=== PATIENT | male | born 1955 | race Caucasian/White ===

== ENCOUNTER 2019-01-14 09:12 | Observation (INO) ==
[2019-01-14] MEDS ORDERED: ASPIRIN PO ONE (09:23)
[2019-01-14] MEDS ORDERED: NITROGLYCERIN TOP ONE (10:01)
--- NOTE | 2019-01-14 10:02 | Diag Imaging Result Doc PS360 ---
EXAM: CHEST-2 VIEWS HISTORY: CP TECHNIQUE: Two views COMPARISON: 09/04/2014 FINDINGS: The lungs are hyperexpanded. The heart is not enlarged. There are sternal wires. The vessels are not distended. There are no infiltrates. No pleural effusions. Multiple old left rib fractures. IMPRESSION: Likely emphysema Electronically signed by Jose Bernardo 01/14/2019 10:00 AM
[2019-01-14 10:06] LABS: BASO# 0.06 X1000 (0.0-0.2); BASO% 0.6 % (0.0-0.8); EOS% 4.1 % (0.0-10.0); HEMATOCRIT 43.6 % (42.0-52.0); HEMOGLOBIN 14.6 g/dL (14.0-18.0); IMM GRAN# 0.03 X1000 (0.0-0.04); IMM GRAN% 0.3 % (0.0-0.5); LYMPH% 18.6 % (20.5-51.1); MCH 32.9 PG (27-31); MCHC 33.5 g/dL (33-37); MCV 98.2 FL (81-99); MONO# 0.66 X1000 (0.11-0.59); MONO% 6.8 % (1.7-9.3); MPV 13.1 FL (7.4-10.4); NEUT# 6.74 X1000 (1.4-6.5); NEUT% 69.6 % (42.2-75.2); PLT 106 X1000 (130-400); RBC 4.44 XMIL (4.7-6.1); RDW 14.7 % (11.5-14.5); WBC 9.69 X1000 (4.8-10.8)
[2019-01-14 10:10] LABS: AGAP 12; ALB/GLOB RATIO 1.4; ALBUMIN 4.5 g/dL (3.5-5.0); ALKALINE PHOSPHATASE 72 U/L (32-122); BUN 15 mg/dL (8-22); CALCIUM 9.4 mg/dL (8.8-10.2); CHLORIDE 101 mmol/L (98-107); CK PROFILE 62 U/L (24-204); COSMO 280; CREATININE 1.1 mg/dL (0.7-1.2); ESTIMATED GFR > 60; GLUCOSE 134 mg/dL (70-104); GOT 20 U/L (10-34); GPT 16 U/L (10-44); INR 2.22; POTASSIUM 4.1 mmol/L (3.5-5.1); PROTIME 25.2 Seconds (11.0-16.0); SODIUM 139 mmol/L (136-145); TCO2 26 mmol/L (25-35); TOTAL BILIRUBIN 0.52 mg/dL (0.20-1.00); TOTAL PROTEIN 7.7 g/dL (6.3-8.3)
--- NOTE | 2019-01-14 10:15 | EKG Report ---
Test Performed on : 01/14/2019 09:18:41 AM Test Reason : CP Blood Pressure : / mmHG Vent. Rate : 077 BPM Atrial Rate : 077 BPM P-R Int : 188 ms QRS Dur : 124 ms QT Int : 416 ms P-R-T Axes : 078 056 077 degrees QTc Int : 470 ms Normal sinus rhythm. Nonspecific intraventricular conduction delay Borderline ECG When compared with ECG of 25-APR-2007 14:44, No significant change was found Unconfirmed Result
--- NOTE | 2019-01-14 10:20 | PROVIDER DOCUMENTATION ---
HPI-Chest Pain - General Chief Complaint: Chest Pain Stated Complaint: CP Time Seen by Provider: 01/14/19 09:24 Source: patient Allergies/Adverse Reactions: Patient Allergies Allergy/AdvReac Type Severity Reaction Status Date / Time No Known Allergies Allergy Verified 01/14/19 09:35 Home Medications: Home Medication List Medication Instructions Recorded Confirmed Last Taken Type Oxycodone HCl [Roxicodone] 30 mg PO Q4HR 02/02/12 01/14/19 09/04/14 06:00 Hi story ATORVAstatin [Lipitor] 20 mg PO QPM 09/04/14 01/14/19 09/03/14 17:00 History Amiodarone HCl 200 mg PO QHS 09/04/14 01/14/19 09/03/14 21:00 History Warfarin [Coumadin] 3 mg PO EVERY OTHER DAY 09/04/14 01/14/19 09/03/14 21:00 History Warfarin [Coumadin] 6 mg PO EVERY OTHER DAY 09/04/14 01/14/19 09/02/14 21:00 History Carvedilol [Coreg] 6.25 mg PO BID 01/14/19 01/14/19 Unknown History Spironolactone 25 mg PO DAILY 01/14/19 01/14/19 Unknown History - History of Present Illness-CP Nature of Presenting Problem: Patient is a 63 yowm who complains of mid sternal chest "pressure and heaviness" and SOB x 1 week. States the s/s are exacerbated by exertion. States, "I can't even walk to the mailbox without getting short of breath." Denies any other complaints. He is non-toxic in appearance. Context/Activities at Onset: reports: light activity Modifying Factors: improves with: rest (improves s/s) Review of Systems - Adult - REVIEW OF SYSTEMS - ADULT Constitutional: reports: no symptoms reported Eyes: reports: no symptoms reported Ears, Nose, Mouth & Throat: reports: no symptoms reported Cardiovascular: reports: see HPI, chest pain. denies: edema, syncope Respiratory: reports: see HPI, dyspnea on exertion, shortness of breath. denies: cough, hemoptysis, wheezing Gastrointestinal: reports: no symptoms reported Genitourinary: reports: no symptoms reported Musculoskeletal: reports: no symptoms reported Integumentary: reports: no symptoms reported Neurological: reports: no symptoms reported Psychiatric: reports: no symptoms reported Endocrine: reports: no symptoms reported Hematologic/Lymphatic: reports: no symptoms reported Allergic/Immunologic: reports: no symptoms reported All Other Systems: Reviewed and Negative Past History - Adult - PAST MEDICAL HISTORY-ADULT Review of Records: reports: Old Records Reviewed, Nursing Assessment Review, Medications Reviewed, Social history reviewed & non-contributory. Major Childhood Illnesses: reports: denies history Cardiovascular: reports: aortic disease (thoracic aneurysm), CAD, HTN, heart valve problem (had metallic heart valve placed when aneursym was repaired) Gastrointestinal: reports: pancreatitis Genitourinary: reports: kidney stones Musculoskeletal: reports: arthritis, chronic pain (back) Psychiatric: reports: denies history Endocrine/Immune: reports: denies history Other Conditions: reports: denies history - PRIOR SURGERIES/PROCEDURES Surgical/Procedure History: reports: orthopedic (extremity) (right knee ), joint replacement (right knee), other (lithotripsy; thoracic aortic aneursym repair with valve placement) - IMMUNIZATION STATUS Childhood Immunizations: See Nurse Assessment Flu Vaccine: See Nurse Assessment - FAMILY HISTORY Family History: reviewed, not pertinent, other (neg for CAD) - SOCIAL HISTORY Smoking: cigarettes, greater than 1 pack/day Physical Exam-General - PHYSICAL EXAM-ADULT Initial Vital Signs Reviewed: Yes - CONSTITUTIONAL General Appearance: alert, no apparent distress. negative: lethargic, slow to respond - EYES Eyes: PERRL/EOMI, pink conjunctivae - HEAD, EARS, NOSE, MOUTH & THROAT HENMT: normocephalic/atraumatic, moist mucous membranes - NECK Neck: full range of motion, supple, normal inspection - RESPIRATORY Respiratory: chest non-tender, lungs clear, no respiratory distress, no acces dwight muscle use - CARDIOVASCULAR Cardiovascular: normal peripheral pulses, no edema, no gallop, no JVD, no murmur , other (systolic click) - GASTROINTESTINAL (ABDOMEN) Abdominal Exam: normal bowel sounds, non tender, soft - MUSCULOSKELETAL Back Exam: normal inspection Extremity: normal range of motion, non-tender, normal gait, normal inspection - SKIN Integumentary: normal color, warm/dry. negative: cyanosis, diaphoresis, jaundice, mottled, pallor - NEUROLOGIC Neurologic: grossly normal, no motor/sensory deficits - PSYCHIATRIC Psych/Mental Status: normal mood/affect, normal thought content, normal thought process, oriented x 3 - HEART Score HEART Score: History: Highly Suspicious HEART Score: ECG: Normal HEART Score: Age: 45-65 Years HEART Score: Risk Factors for Atherosclerotic Disease: > or = 3 Risk Factors or History of Atherosclerotic Disease HEART Score: Troponin: < or = Normal Limit Total HEART Score:: 5 Progress - PLAN OF CARE/RESULTS Progress/Plan/Lab Results: Vital Signs - 8 hr 01/14/19 09:15 01/14/19 09:24 01/14/19 09:25 Temperature 98.0 F Pulse Rate 77 76 Respiratory Rate 20 10 L Blood Pressure 133/85 144/92 O2 Sat by Pulse Oximetry 98 98 97 01/14/19 09:30 01/14/19 09:31 01/14/19 09:52 Temperature Pulse Rate 73 71 86 Respiratory Rate 15 12 8 L Blood Pressure 137/92 O2 Sat by Pulse Oximetry 98 99 97 01/14/19 09:53 01/14/19 10:00 01/14/19 10:01 Temperature Pulse Rate 73 70 72 Respiratory Rate 16 15 20 Blood Pressure 120/88 134/86 O2 Sat by Pulse Oximetry 97 97 95 01/14/19 10:15 01/14/19 10:30 01/14/19 10:31 Temperature Pulse Rate 72 69 68 Respiratory Rate 14 21 15 Blood Pressure 132/84 O2 Sat by Pulse Oximetry 95 94 L 95 01/14/19 10:45 01/14/19 11:00 01/14/19 11:01 Temperature Pulse Rate 67 66 65 Respiratory Rate 21 17 17 Blood Pressure 117/74 O2 Sat by Pulse Oximetry 94 L 95 95 01/14/19 11:15 01/14/19 11:30 01/14/19 11:31 Temperature Pulse Rate 65 66 63 Respiratory Rate 15 22 16 Blood Pressure 112/81 O2 Sat by Pulse Oximetry 96 97 97 01/14/19 11:48 01/14/19 12:00 Temperature Pulse Rate 66 60 Respiratory Rate 18 12 Blood Pressure 110/69 O2 Sat by Pulse Oximetry 94 L 97 Laboratory Results - last 24 hr 01/14/19 01/14/19 01/14/19 09:30 09:30 09:30 WBC 9.69 RBC 4.44 L Hgb 14.6 Hct 43.6 MCV 98.2 MCH 32.9 H MCHC 33.5 RDW Std Deviation 14.7 H Plt Count 106 L MPV 13.1 H Immature Gran % (Auto) 0.3 Neut % (Auto) 69.6 Lymph % (Auto) 18.6 L Kershaw % (Auto) 6.8 Eos % (Auto) 4.1 Baso % (Auto) 0.6 Immature Gran # (Auto) 0.03 Neut # (Auto) 6.74 H Lymph # (Auto) 1.80 Kershaw # (Auto) 0.66 H Eos # (Auto) 0.40 Baso # (Auto) 0.06 PT INR PTT (Actin FS) D-Dimer, Quantitative Sodium 139 Potassium 4.1 Chloride 101 Carbon Dioxide 26 Anion Gap 12 BUN 15 Creatinine 1.1 Estimated GFR/1.73 m2 > 60 BUN/Creatinine Ratio 14 Glucose 134 H Calculated Osmolality 280 Calcium 9.4 Total Bilirubin 0.52 AST 20 ALT 16 Alkaline Phosphatase 72 Creatine Kinase 62 Troponin T Jee-U-Kbugpxxakof Pept 376 H Total Protein 7.7 Albumin 4.5 Globulin 3.2 Albumin/Globulin Ratio 1.4 01/14/19 01/14/19 01/14/19 09:30 09:30 09:30 WBC RBC Hgb Hct MCV MCH MCHC RDW Std Deviation Plt Count MPV Immature Gran % (Auto) Neut % (Auto) Lymph % (Auto) Kershaw % (Auto) Eos % (Auto) Baso % (Auto) Immature Gran # (Auto) Neut # (Auto) Lymph # (Auto) Kershaw # (Auto) Eos # (Auto) Baso # (Auto) PT 25.2 H INR 2.22 PTT (Actin FS) 37.0 D-Dimer, Quantitative 0.55 H Sodium Potassium Chloride Carbon Dioxide Anion Gap BUN Creatinine Estimated GFR/1.73 m2 BUN/Creatinine Ratio Glucose Calculated Osmolality Calcium Total Bilirubin AST ALT Alkaline Phosphatase Creatine Kinase Troponin T < 0.010 [id number]-Oribbtfcccv Pept Total Protein Albumin Globulin Albumin/Globulin Ratio Orders Category Date Time Status Cardiac Monitoring DIRECTED Care 01/14/19 09:24 Active Oxygen Therapy- ED Nursing DIRECTED Care 01/14/19 09:24 Active Saline Loc NOW Care 01/14/19 09:24 Active CHEST-2 VIEWS [RAD] Stat Exams 01/14/19 09:24 Completed CTA [CT ANGIOGRM PULMONARY ARTERIES] [CT] Stat Exams 01/14/19 10:59 Completed CBC WITH ELECTRONIC DIFF [HEME] Stat Lab 01/14/19 09:30 Completed CK PROFILE [SP CHEM] Stat Lab 01/14/19 09:30 Completed COMPREHENSIVE METABOLIC PANEL [CHEM] Stat Lab 01/14/19 09:30 Completed D-DIMER [COAG] Stat Lab 01/14/19 09:30 Completed PRO B-NATRIURETIC PEPTIDE Stat Lab 01/14/19 09:30 Completed PROTIME WITH INR [COAG] Stat Lab 01/14/19 09:30 Completed PTT [COAG] Stat Lab 01/14/19 09:30 Completed TROPONIN T Stat Lab 01/14/19 09:30 Completed 0.9% Sodium Chloride Inj [Ns] 250 ml Med 01/14/19 11:14 Discontinued IV 500 mls/hr Aspirin Med 01/14/19 09:23 Discontinued 325 mg PO NOW ONE Nitroglycerin Med 01/14/19 10:01 Discontinued 0.5 inch TOP NOW ONE CP/SOB/Palp >45 yrs of Age Stat Oth 01/14/19 09:23 Ordered EKG [EKG] Stat Ther 01/14/19 09:24 Draft Result Diagrams: 01/14/19 09:30 01/14/19 09:30 - REASSESSMENT Reassessment #1 Time Reassessed: 11:18 Status: improving (Chest pain resolved with nitro. Pt in agreement with admission plan. Will admit after CTA.) Reassessment #2 Time Reassessed: 11:33 Status: other (Admitting HPS paged.) Reassessment #3 Time Reassessed: 12:46 Status: other (Pt in agreement with admission plan.) - EKG 1 Time of EKG reading by physician:: 09:20 EKG Read and Signed by:: Santosh Couch EKG Interpretation (*Must complete 3 of following elements*): Abnormal Rate: 77 Rhythm: SR-nonspecific intraventricular condution delay QRS: normal ST Wave: normal - XRAY 1 XRAY Study: Chest ([facility] - [address], [address], [place] [address] [facility] - [address] [place] [address] Department of Imaging Patient: GE BURROUGHS Date: 01/14/19MR#: [id number] : 1955DM Status: PRE ERAcct#: [id number] Age/Sex: 63/MRoom/Bed: Loc: ED Ordering Physician: Santosh Couch MD Physician: Eliu Sutton DO Reason for Procedure: CP Signed EXAM: CHEST-2 VIEWS HISTORY: CP TECHNIQUE: Two views COMPARISON: 09/04/2014 FINDINGS: The lungs are hyperexpanded. The heart is not enlarged. There are sternal wires. The vessels are not distended. There are no infiltrates. No pleural effusions. Multiple old left rib fractures. IMPRESSION: Likely emphysema Electronically signed by Jose Bernardo 01/14/2019 10:00 AM 01/14/19 1000 Interpreting Physician: Jose Bernardo MD Dictated Date/Time: 01/14/19 0959 cc: Santosh Couch MD; Eliu Sutton DO) - CT/MRI 1 CT Study: Thorax ([facility] - [address] [place] [address] [address] [address] [facility] - [address] [place] [address] Department of Imaging Patient: GE BURROUGHS Date: #: [id number] : 1955DM Status: REG [facility]#: [id number] Age/Sex: 63/MRoom/Bed: Loc: ED Ordering Physician: Nakul Young Family Physician: Eliu Sutton DO Reason for Procedure: cp, SOB, elevated d-dimer Signed EXAM: CT ANGIOGRM PULMONARY ARTERIES INDICATION: cp, SOB, elevated d-dimer TECHNIQUE: This exam was performed using automated exposure control, adjustment of mA or kV according to patient size, and/or use of iterative reconstruction technique. Thin section axial images and 3-D MIPS were obtained. COMPARISON: None. FINDINGS: There is no evidence of pulmonary embolism. There is mild thoracic aortic atherosclerotic calcification. There is no evidence of thoracic aortic aneurysm. There is no cardiomegaly. There is a prosthetic aortic valve. There are calcified mediastinal and hilar lymph nodes indicating prior granulomatous disease. There is advanced pulmonary emphysema. There is patchy fibrotic change at the peripheries of both lungs, mainly at the apices. There is bronchial mucous plugging at the right lower lobe. There is no pleural fluid collection and no pneumothorax. Limited views of the upper abdomen are essentially unremarkable. IMPRESSION: 1.Advanced pulmonary emphysema. 2.Bronchial mucous plugging in the right lower lobe. Consider bronchitis. 3.No evidence of pulmonary embolism. 4.Other incidental/nonacute findings detailed above. Electronically signed by Rubens Sloan 01/14/2019 12:23 PM 01/14/19 1223 Interpreting Physician: Rubens Sloan MD Dictated Date/Time: 01/14/19 1204 cc: Nakul Young; Eliu Timmons DO) - CONSULTS/PCP/HOSPITALIST Notification #1 *Consult/PCP/Hospitalist*: GHADA Dejesus LITIGATION [place] Time Discussed: 12:46 Reason/Comments: admit- cp, SOB Consult Disposition: Admit (to Dr. Cope) Departure - Departure Date of Disposition Decision: 01/14/19 Time of Disposition Decision: 12:46 DIAGNOSIS: SOB (shortness of breath) Chest pain Qualifiers: Chest pain type: unspecified Qualified Code(s): R07.9 - Chest pain, unspecified Disposition: ADMITTED INPATIENT 09 Certified Medical Emergency: Emergent Condition: Stable Referrals and Follow-Ups: Eliu Sutton DO [Primary Care Provider] - - Critical Care Note This patient required my direct & personal management of CC.: No Attestation - Physician/ DAVIS Attestation Patient care was provided by Advanced Practice Provider:: Yes Advanced Practice Provider:: Nakul Young Advanced Practice Provider documentation review:: The Mid-level provider hal edmondson, treatment plan and medical decision making was reviewed by the physician who agrees with all treatment and medical decision making by the MLP. The physician spent face to face time with patient:: No Advanced Practice Provider documentation review:: Supervising physician onsite and consulted in the evaluation and care of this patient. The physician did not have a face to face encounter with the patient.
[2019-01-14] MEDS ORDERED: NS 250 ML IV ONE (11:14)
--- NOTE | 2019-01-14 12:25 | Diag Imaging Result Doc PS360 ---
EXAM: CT ANGIOGRM PULMONARY ARTERIES INDICATION: cp, SOB, elevated d-dimer TECHNIQUE: This exam was performed using automated exposure control, adjustment of mA or kV according to patient size, and/or use of iterative reconstruction technique. Thin section axial images and 3-D MIPS were obtained. COMPARISON: None. FINDINGS: There is no evidence of pulmonary embolism. There is mild thoracic aortic atherosclerotic calcification. There is no evidence of thoracic aortic aneurysm. There is no cardiomegaly. There is a prosthetic aortic valve. There are calcified mediastinal and hilar lymph nodes indicating prior granulomatous disease. There is advanced pulmonary emphysema. There is patchy fibrotic change at the peripheries of both lungs, mainly at the apices. There is bronchial mucous plugging at the right lower lobe. There is no pleural fluid collection and no pneumothorax. Limited views of the upper abdomen are essentially unremarkable. IMPRESSION: 1.Advanced pulmonary emphysema. 2.Bronchial mucous plugging in the right lower lobe. Consider bronchitis. 3.No evidence of pulmonary embolism. 4.Other incidental/nonacute findings detailed above. Electronically signed by Rubens Sloan 01/14/2019 12:23 PM
[2019-01-14] MEDS ORDERED: TYLENOL PO PRN (13:38)
[2019-01-14] MEDS ORDERED: ZOFRAN IV PRN (13:38)
--- NOTE | 2019-01-14 14:06 | HISTORY AND PHYSICAL ---
HISTORY OF PRESENT ILLNESS: Mr. Gomez is a 63-year-old who presented to the emergency room. He said for the last week he has had this pressure sensation over anterior sternum and it waxes and wanes through the day, but the last 24 hours seemed to be more constant. It did not radiate into his jaw or to his arm. No diaphoresis appreciated. Did feel short of breath. It did seem to come on with exertion and seemed to be relieved with some rest. He did get some relief he felt like when he got a nitroglycerin and he came to the emergency room. Denies fever or chills, pleuritic pain, productive cough, sputum production. No recent trauma to his chest. PAST MEDICAL HISTORY: 1. History of pancreatitis in the past. 2. Thoracic aneurysm and repair. 3. He has a mechanical aortic valve. 4. History of coronary artery disease. 5. Hypertension. 6. Nephrolithiasis, 7. Chronic back pain. 8. Osteoarthritis. PAST SURGICAL HISTORY: 1. Right knee surgery. 2. Thoracic aortic aneurysm repair. 3. Aortic valve replacement. ALLERGIES: No known drug allergies. FAMILY HISTORY: Apparently his mother had abdominal aneurysm. Otherwise, no significant heart issues. SOCIAL HISTORY: Denies alcohol but he has smoked since he was a child, 12 years old. He is . No illicit drugs. REVIEW OF SYSTEMS: General: No weight gain or loss reported. HEENT: No change in visual or hearing acuity reported. No neck pain or adenopathy. Respiratory: No increased work of breathing except associated with this chest pain. Cardiovascular: As above. Pressure type chest pain which has waxed and waned over the last week, seems to be related to exertion and relieved with rest. GI: No gross hematochezia. No abdominal pain. Does have a history of pancreatitis in the past. Genitourinary: No gross hematuria or dysuria reported. Musculoskeletal/Neurologic: No significant complaints. Endocrinologic/Hematologic: No significant history. PHYSICAL EXAMINATION: VITAL SIGNS: In the emergency room, well-developed, well-nourished white male with no acute distress. HEENT: Pupils are equal and round. LUNGS: Clear in all lung guy. CARDIOVASCULAR: Regular rhythm and rate without murmur or S3. ABDOMEN: Soft, nondistended. No organomegaly appreciated. No pedal edema. No sign of rash. NECK: Supple. No thyromegaly. VITAL SIGNS: Temperature is 98 degrees, pulse 60, respirations 12, blood pressure 110/69. Height 6 feet 5 inches. He has a midline sternal scar. LABORATORY DATA: White blood cell count 9690, hematocrit 43, platelet count 106,000. Sodium 139, potassium 4.1, chloride 101, BUN 15, creatinine 1.1 blood sugars 134, calcium 9.4, AST 20, ALT 16, alkaline phosphatase 72. ProBNP is 376. Albumin is 4.5. ProTime is 25 with an INR 2.2, PTT is 37. D-dimer is 0.55. IMAGING: Chest x-ray: Likely emphysema, expanded lung volumes. Lungs are hyperexpanded. Heart is not enlarged. I could appreciate the sternal wires. No sign of vessels being distended. No infiltrate or pleural effusion. CT angiogram: Advanced pulmonary emphysema, bronchial mucous plugging in the right lower lobe, consider bronchitis. No evidence of pulmonary embolism. ASSESSMENT AND PLAN: 1. Chest pain, which would be hard to rule out angina. He does have risk factors. I believe he has hypercholesterolemia and history of smoking and he has had abdominal aneurysm repair. So we are going to check serial cardiac enzymes, troponin and CK. We will check his thyroid function, T4, and TSH. We will ask Cardiology to help and decide whether we should pursue a nuclear GXT or may need to be more aggressive, to be based on his clinical course. 2. Apparently, he is on amiodarone. I am assuming this is for ventricular arrhythmias, but I am not sure about that, but he is on amiodarone. We will continue that. Another reason to check his thyroid. Will make sure to follow his electrolytes including magnesium. 3. He has had a mechanical aortic valve replacement. He is on Coumadin. His pro-time is pretty close to being in range. We will continue his present Coumadin. 4. It appears that he has significant chronic obstructive pulmonary disease based on radiographically and long history of smoking. We will children's counselor him on the importance of stopping smoking. 5. History of hypertension. 6. History of nephrolithiasis. 7. Osteoarthritis. Reviewing his home medication, he is on Lipitor 20 mg a day, amiodarone 200 mg at bedtime, Coreg 6.25 mg b.i.d., oxycodone 30 mg p.o. q.4 hours, and spironolactone 25 mg a day. He takes Coumadin 3 alternating with 6 mg every other day. cc: Dash Cope MD
[2019-01-14 14:18] LABS: AGAP 12; BUN 14 mg/dL (8-22); CALCIUM 8.5 mg/dL (8.8-10.2); CHLORIDE 101 mmol/L (98-107); COSMO 275; ESTIMATED GFR > 60; GLUCOSE 82 mg/dL (70-104); POTASSIUM 4.2 mmol/L (3.5-5.1); SODIUM 138 mmol/L (136-145); TCO2 25 mmol/L (25-35)
[2019-01-14 14:38] LABS: FREE T4 1.66 ng/dL (0.93-1.70); TSH 1.85 uIUmL (0.27-4.20)
--- NOTE | 2019-01-14 15:30 | EKG Report ---
Test Performed on : 01/14/2019 1:28:42 PM Test Reason : ED. No order in MT Blood Pressure : / mmHG Vent. Rate : 062 BPM Atrial Rate : 062 BPM P-R Int : 200 ms QRS Dur : 128 ms QT Int : 464 ms P-R-T Axes : 066 027 060 degrees QTc Int : 470 ms Normal sinus rhythm. Nonspecific intraventricular block Nonspecific T wave abnormality Abnormal ECG When compared with ECG of 14-JAN-2019 09:18, (Unconfirmed) No significant change was found Unconfirmed Result
[2019-01-14] MEDS: OXY IR PO SCH ×2 (16:50→21:54)
[2019-01-14] MEDS: COREG PO SCH (20:52)
[2019-01-14] MEDS ORDERED: CORDARONE PO SCH (21:00)
[2019-01-14] MEDS ORDERED: COUMADIN PO SCH (21:00)
[2019-01-14] MEDS ORDERED: LIPITOR PO SCH (21:00)
[2019-01-15] MEDS: OXY IR PO SCH ×2 (03:55→09:23)
[2019-01-15 06:03] LABS: INR 3.19; PROTIME 33.7 Seconds (11.0-16.0)
[2019-01-15] MEDS ORDERED: PRILOSEC PO SCH (07:00)
[2019-01-15] MEDS ORDERED: ASPIRIN PO SCH (09:00)
[2019-01-15] MEDS ORDERED: NICODERM PATCH TD SCH (09:00)
[2019-01-15] MEDS ORDERED: ALDACTONE PO SCH (09:00)
[2019-01-15] MEDS: COREG PO SCH (09:24)
[2019-01-15 11:33] VITALS: BP 98/68
--- NOTE | 2019-01-15 12:47 | DISCHARGE SUMMARY ---
ADMISSION DATE: 01/14/2019 DISCHARGE DATE: Mr. Gomez is a 63-year-old who presented to the emergency room 01/14/2019. He said that he was having a pressure sensation into sternum and waxes and wanes for the last 24 hours and it did not radiate into his arm or neck. He felt a little short of breath and it seemed to be worse with exertion. He got some relief when he got some nitroglycerin, so admitted him to the hospital. Cardiac enzymes, EKG was not did not show any active ischemia. PAST MEDICAL HISTORY: 1. History of pancreatitis in the past. 2. Thoracic aneurysm repair. 3. Mechanical aortic valve. 4. History of coronary artery disease. 5. Hypertension. 6. Nephrolithiasis, 7. Chronic back pain. 8. Osteoarthritis. PAST SURGICAL HISTORY: 1. Right knee surgery. 2. Thoracic aortic aneurysm pair. 3. Aortic valve replacement. ADMISSION DIAGNOSIS: 1. Chest pain was atypical and did not appear to be typical angina. He was given nitroglycerin. The pain resolved, but he complained of a headache from nitroglycerin. We stopped the nitroglycerin and the headache resolved. 2. He is on amiodarone. I presume this is for some history of ventricular arrhythmias, but he continued his regular dose. He did not show any new arrhythmias. He was in sinus rhythm. 3. Mechanical aortic valve replacement on Coumadin. His Coumadin was in barely therapeutic range. 4. Significant COPD based on radiographically and history of smoking. Counseled him on the importance of staying off of the cigarettes. 5. Hypertension. 6. Nephrolithiasis. Next morning he was anxious to go home, really insisting to go home. His cardiac enzymes, troponin less than 0.01, CK was 40. EKGs unremarkable so we will discharge him home. I want him to follow up with his cell cleaner, primary care. We will discharge him home on his previous medications. 1. Lipitor 20 mg a day. 2. Amiodarone 200 mg a day. 3. Coreg 6.25 mg b.i.d. 4. Oxycodone 30 mg q.6 hours. 5. Spironolactone 25 mg a day. 6. Coumadin 3 mg alternating with 6 mg every other day. We will discharge home. cc: Dash Cope MD
[2019-01-15] MEDS ORDERED: FLU VACCINE IM ONE (12:49)
[2019-01-15] MEDS ORDERED: COUMADIN PO SCH (21:00)
== END 2019-01-15 13:46 | disposition home or self-care (01) ==
LOC: ED 09:12 → INTOOBSV 13:28 → 1N 13:28 → EDIPHOLD 13:32 → 1N 15:24
PROVIDERS: ATTEND Emergency Medicine